=== PATIENT | male | born 1975 | race Caucasian/White ===

== ENCOUNTER → 2016-11-28 | Outpatient (CLI) | payer OTHER | LOC: COL.CARD 14:22 → EDBD 14:30 → COL.CARD 14:30 | DX: I48.91 Unspecified atrial fibrillation (principal) ==

== ENCOUNTER → 2019-01-05 | Outpatient (CLI) | payer OTHER | LOC: COL.RAD 12:48 | DX: G93.89 Other specified disorders of brain (principal) ==

== ENCOUNTER → 2019-01-19 | Outpatient (CLI) | payer OTHER | LOC: COL.RAD 07:12 | DX: G91.9 Hydrocephalus, unspecified (principal) | CPT/HCPCS: A9585 ==